=== PATIENT | male | born 2000 | race African-American/Black ===

== ENCOUNTER 2022-12-17 09:10 | Day surgery (SDC) | payer OTHER ==
[~2022-12-17] VITALS: Ht 180.3 cm; Wt 74.5 kg
[2022-12-17 09:51] LABS: BASO % 0.2 % (0.0-1.0); EOS # 0.2 10^3/uL (0.0-0.5); EOS % 1.9 % (0.0-3.0); HEMATOCRIT 42.6 % (42.0-52.0); HEMOGLOBIN 13.9 g/dl (13.5-17.5); LYMPH # 1.9 10^3/uL (1.5-5.0); MEAN CORPUSCULAR HEMOGLOBIN 27.3 pg (27.0-33.0); MEAN CORPUSCULAR HGB CONC 32.6 g/dl (32.0-36.5); MEAN CORPUSCULAR VOLUME 83.7 fl (80.0-96.0); MONO # 0.6 10^3/uL (0.0-0.8); MONO % 6.4 % (2.0-8.0); NEUTROPHILS # 6.7 10^3/uL (1.5-8.5); NEUTROPHILS % 71.3 % (36.0-66.0); PLATELET COUNT, AUTOMATED 222 10^3/uL (150-450); RED BLOOD COUNT 5.09 10^6/uL (4.30-6.10); WHITE BLOOD COUNT 9.4 10^3/uL (4.0-10.0)
[2022-12-17 10:25] LABS: AMYLASE 68 U/L (30-118)
[2022-12-17 10:30] LABS: ALBUMIN 4.2 G/DL (3.2-5.2); ALKALINE PHOSPHATASE 99 U/L (46-116); ALT/SGPT 21 U/L (7.0-40); AST/SGOT 30 U/L (<34); BILIRUBIN,DIRECT 0.3 MG/DL (<0.4); BILIRUBIN,TOTAL 0.8 MG/DL (0.3-1.2); BLOOD UREA NITROGEN 14 MG/DL (9-23); CARBON DIOXIDE LEVEL 30 MMOL/L (20-31); CHLORIDE LEVEL 102 MMOL/L (98-107); GLOMERULAR FILTRATION RATE > 60.0 (>60); GLUCOSE, FASTING 85 MG/DL (60-100); POTASSIUM SERUM 4.2 MMOL/L (3.5-5.1); SODIUM LEVEL 139 MMOL/L (136-145); TOTAL PROTEIN 7.5 G/DL (5.7-8.2)
[2022-12-17] MEDS ORDERED: NS 1,000 ML IV ONE (13:15)
[2022-12-17] MEDS ORDERED: ISOVUE-370 76% 100ML VIAL As Ordered ONE (13:17)
[2022-12-17] MEDS ORDERED: HOME MED LIST COMPLETE! XX SCH (14:10)
[2022-12-17 15:20] LABS: RSV AMPLIFICATION NEGATIVE (NEGATIVE)
[2022-12-17] MEDS ORDERED: LR 1,000 ML IV SCH ×2 (15:30→17:20)
[2022-12-17] MEDS ORDERED: BUPIVACAINE HCL 0.25% 30ML VIAL As Ordered ONE (15:47)
[2022-12-17] MEDS ORDERED: LIDOCAINE 1% SDV 30ML VIAL As Ordered ONE (15:47)
[2022-12-17] MEDS: PIPERACILLIN/TAZOBACTAM SOD 3.375 GM in D5W MINI-BAG PLUS 50 ML IV SCH ×2 (15:47→21:40)
[2022-12-17] MEDS ORDERED: propofoL 200 MG/20 ML VIAL As Ordered ONE (16:37)
[2022-12-17] MEDS ORDERED: LIDOCAINE 2% 100MG/5ML SDV (FOR ANES.) As Ordered ONE (16:37)
[2022-12-17] MEDS ORDERED: KETOROLAC 60MG 2ML VIAL As Ordered ONE (16:37)
[2022-12-17] MEDS ORDERED: fentaNYL 100 MCG/2 ML INJECTION As Ordered ONE (16:37)
[2022-12-17] MEDS ORDERED: SUGAMMADEX SODIUM 500 MG/5 ML VIAL (BRIDION) As Ordered ONE (16:37)
[2022-12-17] MEDS ORDERED: ONDANSETRON 4MG 2ML VIAL As Ordered ONE (16:37)
[2022-12-17] MEDS ORDERED: ROCURONIUM BROMIDE 50MG/5ML VIAL As Ordered ONE (16:37)
[2022-12-17] MEDS ORDERED: METOCLOPRAMIDE INJ 10MG/2ML VIAL As Ordered ONE (16:37)
[2022-12-17] MEDS ORDERED: MIDAZOLAM INJ 2MG/2ML VIAL As Ordered ONE (16:37)
[2022-12-17] MEDS ORDERED: ACETAMINOPHEN 1000MG 100ML IV BAG As Ordered ONE (16:43)
[2022-12-17] MEDS ORDERED: DESFLURANE 240 ML INHALANT As Ordered ONE (17:09)
[2022-12-17] MEDS ORDERED: ONDANSETRON 4MG 2ML VIAL IV PRN (17:20)
[2022-12-17] MEDS ORDERED: HYDROMORPHONE HCL 0.5 MG/ 0.5 ML SYRINGE IV PRN (17:20)
[2022-12-17] MEDS ORDERED: fentaNYL 100 MCG/2 ML INJECTION IV PRN (17:20)
[2022-12-17] MEDS ORDERED: oxyCODONE 5MG TAB PO PRN (17:20)
[2022-12-17] MEDS ORDERED: ACETAMINOPHEN TAB 650MG DOSE (2X325MG) PO PRN (17:25)
[2022-12-17] MEDS ORDERED: PERCOCET 5MG/325MG TAB PO PRN ×2 (17:25)
[2022-12-17] MEDS ORDERED: LevoFLOXacin 750 MG TABLET PO SCH (18:00)
[2022-12-17 18:50] VITALS: BP 122/51
[2022-12-17 19:47] VITALS: BP 125/72
[2022-12-17 20:45] VITALS: BP 126/70
[2022-12-17 21:27] VITALS: BP 129/72
[2022-12-17] MEDS: metroNIDAZOLE (FLAGYL) 500MG TABLET PO SCH (21:39)
[2022-12-18] MEDS: KETOROLAC 30 MG/ML 1ML VIAL IV SCH ×2 (00:31→09:19)
[2022-12-18 02:00] VITALS: BP 121/57
[2022-12-18] MEDS: metroNIDAZOLE (FLAGYL) 500MG TABLET PO SCH ×2 (05:07→12:53)
[2022-12-18] MEDS: PIPERACILLIN/TAZOBACTAM SOD 3.375 GM in D5W MINI-BAG PLUS 50 ML IV SCH ×2 (05:08→09:19)
[2022-12-18 06:06] VITALS: BP 123/58
[2022-12-18] MEDS ORDERED: PERCOCET PO (09:06)
[2022-12-18] MEDS ORDERED: METR-265 PO ×2 (09:06→14:43)
[2022-12-18] MEDS ORDERED: LEVO1TAB40 PO ×2 (09:06→14:42)
[2022-12-18 10:19] VITALS: BP 113/53
[2022-12-18] MEDS ORDERED: OXYC1TAB23 PO (14:44)
== END 2022-12-18 12:45 | disposition home or self-care (01) ==
LOC: M ED 09:10 → M SDC 09:11 → M MS5PR 18:45 → M SDC 12-18 12:45
PROVIDERS: ATTEND Surgery
DX: K35.890 Other acute appendicitis without perforation or gangrene (principal); F17.200 Nicotine dependence, unspecified, uncomplicated
CPT/HCPCS: 44970; 74177; 80048; 80076; 82150; 85025; 87631; 88304; 96365; 96366; 96375; 96376; 99284; J0131; J1100; J1885; J2250; J2405; J2543; J2765; J3010; Q9967; S0020

== ENCOUNTER 2023-02-20 21:04 | Emergency (ER) | payer OTHER ==
[~2023-02-20] VITALS: Ht 180.3 cm; Wt 76.6 kg
[~2023-02-20 21:04] MED LIST: LEVO1TAB40 PO; METR-265 PO; OXYC1TAB23 PO; PERCOCET PO
[2023-02-20] MEDS ORDERED: IBUPROFEN 600MG TAB PO ONE (23:25)
[2023-02-20] MEDS ORDERED: IBUP-1022 PO (23:27)
[2023-02-20 23:31] VITALS: BP 117/56
== END 2023-02-21 00:06 | disposition home or self-care (01) ==
LOC: M ED 21:04
DX: S60.221A Contusion of right hand, initial encounter (principal); W22.8XXA Striking against or struck by other objects, initial encounter; Y92.009 Unspecified place in unspecified non-institutional (private) residence as the place of occurrence of the external cause

== ENCOUNTER 2023-10-04 06:06 | Emergency (ER) | payer OTHER ==
[~2023-10-04] VITALS: Ht 180.3 cm; Wt 78.1 kg
[~2023-10-04 06:06] MED LIST changes: +IBUP-1022 PO
[2023-10-04] MEDS ORDERED: NS 500 ML IV ONE (07:10)
[2023-10-04] MEDS ORDERED: KETOROLAC 30 MG/ML 1ML VIAL IV ONE (07:35)
[2023-10-04] MEDS ORDERED: ISOVUE-370 76% 100ML VIAL As Ordered ONE (07:54)
[2023-10-04 08:03] LABS: BASO % 0.8 % (0.0-1.0); EOS # 0.3 10^3/uL (0.0-0.5); EOS % 5.7 % (0.0-3.0); HEMATOCRIT 46.1 % (42.0-52.0); HEMOGLOBIN 15.9 g/dl (13.5-17.5); LYMPH % 62.4 % (24.0-44.0); MEAN CORPUSCULAR HEMOGLOBIN 28.4 pg (27.0-33.0); MEAN CORPUSCULAR HGB CONC 34.5 g/dl (32.0-36.5); MEAN CORPUSCULAR VOLUME 82.5 fl (80.0-96.0); MONO # 0.2 10^3/uL (0.0-0.8); MONO % 5.1 % (2.0-8.0); NEUTROPHILS # 1.2 10^3/uL (1.5-8.5); PLATELET COUNT, AUTOMATED 266 10^3/uL (150-450); RED BLOOD COUNT 5.59 10^6/uL (4.30-6.10); WHITE BLOOD COUNT 4.7 10^3/uL (4.0-10.0)
[2023-10-04 08:29] LABS: RSV AMPLIFICATION NEGATIVE (NEGATIVE)
[2023-10-04 08:31] LABS: ALBUMIN 4.5 G/DL (3.2-5.2); BILIRUBIN,DIRECT 0.3 MG/DL (<0.4); BILIRUBIN,TOTAL 0.8 MG/DL (0.3-1.2); TOTAL PROTEIN 7.8 G/DL (5.7-8.2)
[2023-10-04 10:45] VITALS: BP 119/64; TEMP 97.9; O2SAT 100
== END 2023-10-04 10:50 | disposition home or self-care (01) ==
LOC: M ED 06:06
DX: R10.9 Unspecified abdominal pain (principal); I49.40 Unspecified premature depolarization; R00.1 Bradycardia, unspecified; Z79.1 Long term (current) use of non-steroidal anti-inflammatories (NSAID)
CPT/HCPCS: 71045; 71275; 74177; 80047; 80076; 81001; 83605; 83690; 85025; 87040; 87631; 93005; 93041; 96361; 96374; 99285; J1885; Q9967

== ENCOUNTER 2023-10-14 17:57 | Emergency (ER) | payer OTHER ==
[~2023-10-14] VITALS: Ht 180.3 cm; Wt 77.3 kg
[2023-10-14 17:58] VITALS: BP 111/58; TEMP 98.7; O2SAT 100
== END 2023-10-14 19:55 | disposition left against medical advice (07) ==
LOC: M ED 17:57
DX: Z53.21 Procedure and treatment not carried out due to patient leaving prior to being seen by health care provider (principal)

== ENCOUNTER 2023-10-18 09:59 | Emergency (ER) | payer OTHER ==
[~2023-10-18] VITALS: Ht 180.3 cm; Wt 74.3 kg
[2023-10-18 11:18] LABS: RSV AMPLIFICATION NEGATIVE (NEGATIVE)
[2023-10-18 12:08] VITALS: BP 148/61; TEMP 100.1; O2SAT 99
[2023-10-18] MEDS ORDERED: AMOX500C PO (12:52)
[2023-10-18] MEDS ORDERED: IBUP-1022 PO (12:52)
== END 2023-10-18 13:04 | disposition home or self-care (01) ==
LOC: M ED 09:59
DX: J02.0 Streptococcal pharyngitis (principal); Z79.2 Long term (current) use of antibiotics; Z79.1 Long term (current) use of non-steroidal anti-inflammatories (NSAID)

== ENCOUNTER 2024-02-17 16:59 | Emergency (ER) | payer OTHER ==
[~2024-02-17] VITALS: Ht 180.3 cm; Wt 70.8 kg
[~2024-02-17 16:59] MED LIST changes: +AMOX500C PO
[2024-02-17 17:00] VITALS: BP 114/55; TEMP 97.2; O2SAT 99
[2024-02-17 18:46] LABS: Trichomonas vaginalis (AMP) NOT DETECTED (NEGATIVE)
[2024-02-17 19:09] LABS: GC DNA AMPLIFICATION NEGATIVE (NEGATIVE)
== END 2024-02-17 20:03 | disposition left against medical advice (07) ==
LOC: M ED 16:59
DX: Z53.21 Procedure and treatment not carried out due to patient leaving prior to being seen by health care provider (principal)

== ENCOUNTER 2024-06-03 00:34 | Emergency (ER) | payer OTHER ==
[~2024-06-03] VITALS: Ht 180.3 cm; Wt 72.0 kg
[2024-06-03 05:50] VITALS: BP 114/56; O2SAT 97
[2024-06-03] MEDS ORDERED: AMOX500C PO (06:23)
[2024-06-03] MEDS: ACETAMINOPHEN TAB 650MG DOSE (2X325MG) PO ONE (06:24)
[2024-06-03] MEDS: AMOXICILLIN 500 MG CAP PO ONE (06:24)
[2024-06-03 06:37] VITALS: TEMP 98.8
== END 2024-06-03 06:38 | disposition home or self-care (01) ==
LOC: M ED 00:34
DX: J02.0 Streptococcal pharyngitis (principal); Z91.013 Allergy to seafood